=== PATIENT | female | born 1960 | race Caucasian/White ===

== ENCOUNTER 2016-02-28 07:17 | Day surgery (SDC) | payer BC ==
[~2016-02-28] VITALS: Ht 165.2 cm; Wt 78.6 kg
[2016-02-28] VITALS (9 sets, daily range): BP systolic 115–142; BP diastolic 69–92; PULSE 62–81; TEMP 97.8–98.3
[2016-02-28 08:09] LABS: HEMATOCRIT 40.3 % (37.0-47.0); HEMOGLOBIN 13.1 g/dl (12.5-16.0); MEAN CELL VOLUME 90 fl (80.0-100.0); MEAN CORPUSCULAR HEMOGLOBIN 29 pg (27.0-31.0); MEAN CORPUSCULAR HGB CONC 33 g/dl (33.0-37.0); MEAN PLATELET VOLUME 9.3 fl (7.4-10.4); PLATELET COUNT 343 K/mm3 (130-400); RED BLOOD COUNT 4.46 M/mm3 (4.10-5.30); REDCELL DISTRIBUTION WIDTH-CV 13.5 % (11.5-14.5); WHITE BLOOD COUNT 9.1 K/mm3 (4.8-10.8)
[2016-02-28] MEDS ORDERED: DIOVAN/HCT 12.51 TA1 PO (08:15)
[2016-02-28] MEDS ORDERED: MULTI VITAMINS1 TAB PO (08:16)
[2016-02-28] MEDS ORDERED: SINGULAIR 110 MG/TAB PO (08:16)
[2016-02-28 08:17] LABS: PROTHROMBIN TIME 10.5 SECONDS (9.7-12.8)
[2016-02-28] MEDS ORDERED: ASPIRIN E.C. 8181 MG PO (08:17)
[2016-02-28] MEDS ORDERED: DESYREL 50MG50 MG PO (08:17)
[2016-02-28 08:32] LABS: CALCIUM 9.7 mg/dL (8.4-10.2); CREATININE, serum 0.78 mg/dL (0.52-1.25)
[2016-02-28] MEDS ORDERED: BYSTOLIC5 MG PO (14:00)
== END 2016-02-28 15:15 | disposition home or self-care (01) ==
LOC: EUO 07:17 → COL.RAD 07:30 → EUO 07:30
PROVIDERS: Internal Medicine Cardiovascular Disease
DX: Q23.1 Congenital insufficiency of aortic valve (principal); R06.02 Shortness of breath; I10 Essential (primary) hypertension; R42 Dizziness and giddiness; R07.9 Chest pain, unspecified; Z79.82 Long term (current) use of aspirin; Z79.899 Other long term (current) drug therapy
CPT/HCPCS: C1769; C1887; C1894; J1644; J2250; J2704; J3010; Q9967

== ENCOUNTER → 2017-03-16 | Outpatient (CLI) | payer BC ==
[~2017-03-16] MED LIST: ASPIRIN E.C. 8181 MG PO; BYSTOLIC5 MG PO; DESYREL 50MG50 MG PO; DIOVAN/HCT 12.51 TA1 PO; MULTI VITAMINS1 TAB PO; SINGULAIR 110 MG/TAB PO
== END ==
LOC: MC.RAD 07:32
DX: Z12.31 Encounter for screening mammogram for malignant neoplasm of breast (principal)

== ENCOUNTER → 2019-01-13 | Outpatient (CLI) | payer BC | LOC: MC.RAD 13:50 | DX: Z12.31 Encounter for screening mammogram for malignant neoplasm of breast (principal) ==

== ENCOUNTER → 2020-06-09 | Outpatient (CLI) | payer BC | LOC: MC.RAD 12:54 | DX: Z12.31 Encounter for screening mammogram for malignant neoplasm of breast (principal) ==